=== PATIENT | female | born 1950 | race Caucasian/White ===

== ENCOUNTER → 2022-01-01 | Day surgery (SDC) | payer OTHER, BC ==
--- NOTE | 2022-01-01 12:48 | RAD REPORT ---
EXAM DESCRIPTION: US - Breast Core BX w/US Guidance - 01/01/2022 12:02 pm CLINICAL HISTORY: ICD R 92.8 COMPARISON: March 18, 2021 ultrasound TECHNIQUE: The risks, benefits alternatives to the procedure were explained to the patient and infor med consent obtained. Skin and subcutaneous tissues anesthetized with lidocaine. Under sonographic guidance, a 17 gauge coaxial needle was advanced into the lesion. 5 core samples we re obtained and passed to the drag out worker. Note that after the 4th sample, the lesion was diffic ult to identify as the cystic component resolved. Subsequently a localizing clip was placed into the mass. Patient experienced no immediate complication IMPRESSION: 1. Technically successful ultrasound guided core biopsy of a cystic lesion in the right breast. 2. No residual lesion identified following the core sample in keeping with a nearly completely cystic process. 3. No immediate complications.
== END ==
LOC: DS 09:52
PROVIDERS: ATTEND Obstetrics & Gynecology
DX: N63.10 Unspecified lump in the right breast, unspecified quadrant (principal)
CPT/HCPCS: 19083; 88305